=== PATIENT | male | born 1995 | race Hispanic/Latino ===

== ENCOUNTER 2019-11-12 13:12 | Emergency (ER) | payer SELFPAY ==
[2019-11-12] MEDS ORDERED: TETANUS/DIPHTHERIA TOXOID [ADULT] 0.5 ML VIAL IM ONE (14:12)
[2019-11-12] MEDS ORDERED: LIDOCAINE HCL 1% 20 ML VIAL ONE (14:27)
== END 2019-11-12 15:26 | disposition home or self-care (01) ==
LOC: EDH 13:12
DX: S82.832A Other fracture of upper and lower end of left fibula, initial encounter for closed fracture (principal); S01.21XA Laceration without foreign body of nose, initial encounter; Z72.0 Tobacco use; W01.0XXA Fall on same level from slipping, tripping and stumbling without subsequent striking against object, initial encounter; Y93.39 Activity, other involving climbing, rappelling and jumping off; Y92.89 Other specified places as the place of occurrence of the external cause; Y99.8 Other external cause status
CPT/HCPCS: 12011; 29515; 70450; 70486; 72125; 73590; 90471; 90714

== ENCOUNTER 2019-11-17 19:26 | Emergency (ER) | payer SELFPAY | END 2019-11-17 19:55 | disposition home or self-care (01) | LOC: EDH 19:26 | DX: Z48.02 Encounter for removal of sutures (principal); Z72.0 Tobacco use | CPT/HCPCS: 99281 ==